=== PATIENT | male | born 1970 | race Caucasian/White ===

== ENCOUNTER 2021-12-04 09:09 | Emergency (ER) | payer MEDICAID ==
[~2021-12-04] VITALS: Ht 170.2 cm; Wt 95.5 kg
[2021-12-04 09:15] VITALS: BP 172/85
[2021-12-04] MEDS ORDERED: MUPI22OI30 TOP (10:35)
== END 2021-12-04 10:50 | disposition home or self-care (01) ==
LOC: ER 09:09
DX: L02.818 Cutaneous abscess of other sites (principal); F17.200 Nicotine dependence, unspecified, uncomplicated; Z86.14 Personal history of Methicillin resistant Staphylococcus aureus infection; Z72.89 Other problems related to lifestyle; Z79.899 Other long term (current) drug therapy
CPT/HCPCS: 99283